=== PATIENT | female | born 2000 | race Caucasian/White ===

== ENCOUNTER 2022-05-10 15:19 | Outpatient (CLI) | payer OTHER ==
[2022-05-10] MEDS ORDERED: PRENATAL CAPLE1 EAC1 PO (15:47)
== END 2022-05-11 16:16 | disposition home or self-care (01) ==
LOC: OBS/DEL 15:19
PROVIDERS: ATTEND Obstetrics & Gynecology Obstetrics
DX: O23.03 Infections of kidney in pregnancy, third trimester (principal); N13.6 Pyonephrosis; Z3A.49 Greater than 42 weeks gestation of pregnancy